=== PATIENT | male | born 1985 | race Two or more races ===

== ENCOUNTER 2017-01-03 00:57 | Emergency (ER) | payer SELFPAY ==
[~2017-01-03] VITALS: Ht 175.3 cm; Wt 95.3 kg
[2017-01-03 00:58] VITALS: BP 116/69
== END 2017-01-03 01:15 ==
LOC: ER 00:57
DX: S01.511A Laceration without foreign body of lip, initial encounter (principal); W50.3XXA Accidental bite by another person, initial encounter; Y93.89 Activity, other specified; Y92.89 Other specified places as the place of occurrence of the external cause; Y99.8 Other external cause status